=== PATIENT | female | born 1960 | race African-American/Black ===

== ENCOUNTER 2024-07-02 17:18 | Emergency (ER) | payer MEDICARE, MEDICAID ==
[~2024-07-02] VITALS: Ht 167.6 cm; Wt 55.0 kg
[~2024-07-02 17:18] MED LIST: ASPI-1497 PO; ATOR-2 PO; CLOP75TA33 PO; EMPA25TA PO; FURO40TA5 PO; LISI-186 PO; METO-396 PO; SPIR25TA6 PO; UMEC1DIS IH
[2024-07-02 17:28] VITALS: TEMP 36.6; O2SAT 100
[2024-07-02] MEDS: MECLIZINE 25MG TABLET PO ONE (19:02)
[2024-07-02 19:30] LABS: CHLORIDE 106 mEq/L (98-107); SODIUM 142 mEq/L (136-145)
[2024-07-02 19:31] LABS: BASOPHILS % 0.4 % (0.0-2.0); CARBON DIOXIDE 27 mEq/L (21-32); HEMATOCRIT. 38.1 % (36.0-48.0); HEMOGLOBIN. 12.1 g/dL (12.0-16.0); LYMPHOCYTES % 28.1 % (20.0-50.0); MEAN CORPUSCULAR HEMOGLOBIN 28.2 pg (28.0-32.0); MEAN CORPUSCULAR HGB CONC 31.9 g/dL (31.0-37.0); MEAN CORPUSCULAR VOLUME 88.5 fL (81.0-99.0); MEAN PLATELET VOLUME 8.5 fl (7.4-10.4); NEUTROPHILS % 65.5 % (40.0-76.0); PLATELET 313 x1000/uL (130-400); RED BLOOD CELL COUNT 4.31 mill/uL (4.2-5.4); RED CELL DISTRIBUTION WIDTH 15.3 % (11.6-14.6); WHITE BLOOD COUNT 7.3 x1000/uL (4.5-11.0)
[2024-07-02 19:36] LABS: CREATININE 1.4 mg/dL (0.6-1.0); GLUCOSE 129 mg/dL (70-105); UREA NITROGEN BLOOD 24 mg/dL (9-23)
[2024-07-02 19:43] LABS: TROPONIN I HIGH SENSITIVITY 5 ng/L (3.0-34)
[2024-07-02 20:13] LABS: CLARITY URINE CLEAR (CLEAR); GLUCOSE URINE 3+ (NEGATIVE); KETONES URINE NEGATIVE (NEGATIVE); LEUKOCYTE ESTERASE URINE NEGATIVE (NEGATIVE); NITRITE URINE NEGATIVE (NEGATIVE); OCCULT BLOOD URINE NEGATIVE (NEGATIVE); PROTEIN URINE NEGATIVE (NEGATIVE); SPECIFIC GRAVITY URINE 1.019 (1.005-1.030)
[2024-07-02 20:49] LABS: COLOR URINE STRAW (YELLOW)
[2024-07-02 20:50] LABS: RBC URINE NONE SEEN /hpf (0-2); SQUAMOUS EPITHELIAL CELL URINE FEW /lpf (RARE/1+); WBC URINE 0-2 /hpf (0-2)
[2024-07-02 20:51] LABS: BACTERIA URINE TRACE; MUCUS URINE TRACE /lpf (< = 2+)
[2024-07-02] MEDS: PROCHLORPERAZINE 10MG/2ML VIAL IV ONE (21:30)
[2024-07-02] MEDS: SODIUM CHLORIDE 0.9% 1,000 ML IV ONE (21:44)
[2024-07-02] MEDS ORDERED: MECL-299 MT (23:17)
[2024-07-02 23:25] VITALS: BP 102/67; RESP 16; O2SAT 98
[2024-07-02 23:28] VITALS: PULSE 74
[2024-07-02] MEDS: METOPROLOL SUCCINATE 50MG ER TABLET PO ONE (23:28)
== END 2024-07-02 23:55 | disposition home or self-care (01) ==
LOC: ER 17:18
DX: R42 Dizziness and giddiness (principal); N17.9 Acute kidney failure, unspecified; E11.9 Type 2 diabetes mellitus without complications; E78.00 Pure hypercholesterolemia, unspecified; I10 Essential (primary) hypertension; J44.9 Chronic obstructive pulmonary disease, unspecified; Z79.899 Other long term (current) drug therapy; Z95.5 Presence of coronary angioplasty implant and graft
CPT/HCPCS: 99285; 96360; 70450; 71045; 80048; 81003; 85025; 84484; 36415; 93005; J8597; J7030; J0780